=== PATIENT | female | born 2000 | race Two or more races ===

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

== ENCOUNTER 2023-11-06 04:04 | Emergency (ER) | payer OTHER ==
[~2023-11-06] VITALS: Ht 165.1 cm; Wt 65.0 kg
[2023-11-06 04:50] VITALS: BP 139/92; PULSE 122; RESP 20; O2SAT 99
== END 2023-11-06 05:25 | disposition left against medical advice (07) ==
LOC: EDBD 04:04 → ER 04:04
DX: F10.90 Alcohol use, unspecified, uncomplicated (principal); Z53.21 Procedure and treatment not carried out due to patient leaving prior to being seen by health care provider; Y90.0 Blood alcohol level of less than 20 mg/100 ml